=== PATIENT | female | born 1945 | race African-American/Black ===

== ENCOUNTER 2024-02-17 13:12 | Inpatient (IN) | payer MEDICARE, MEDICAID ==
[2024-02-17] VITALS (7 sets, daily range): BP systolic 92–114; BP diastolic 34–54; PULSE 80–122; RESP 18–31; TEMP 100.9; O2SAT 2–100
[~2024-02-17] VITALS: Ht 172.7 cm; Wt 122.6 kg
[~2024-02-17 13:12] MED LIST: ALBU3SOL83 IH; AMLO5TAB GT; ASPI-1822 GT; ATOR20TA40 GT; CARV12.52 GT; HUM SUBQ; LANS30EC GT; LANTUS SUBQ; ONDA-188 GT; TICA90TA GT; [UNRECOGNIZED DRUG - CODE] GT
[2024-02-17 14:08] LABS: HEMATOCRIT 23.5 % (36-48); HEMOGLOBIN 7.6 g/dL (12.0-16.0); MEAN CORPUSCULAR HEMOGLOBIN 27 pg (27-31); MEAN CORPUSCULAR HGB CONC 32 g/dL (33-37); MEAN CORPUSCULAR VOLUME 83.4 fL (80-94); PLATELET COUNT (AUTO) 147 K/uL (140-450); RED BLOOD CELL COUNT(AUTO) 2.82 MIL/uL (4.20-5.40); RED CELL DISTRIBUTION WIDTH 18.2 % (11.6-13.7); WHITE BLOOD COUNT (AUTO) 12.5 K/uL (4.8-10.8)
[2024-02-17 14:24] LABS: APPEARANCE,URINE CLEAR (CLEAR); BILIRUBIN,URINE NEGATIVE (NEGATIVE); BLOOD, URINE 2+ (NEGATIVE); COLOR,URINE YELLOW (YELLOW); LEUKOCYTE ESTERASE ,URINE 2+ (NEGATIVE); NITRITE, URINE NEGATIVE (NEGATIVE); PROTEIN,URINE TRACE (NEGATIVE); UGLUCOSE NEGATIVE (NEGATIVE)
[2024-02-17 14:28] LABS: ANION GAP 11.5 (8-16); CALCIUM 8.4 mg/dL (8.5-10.1); CARBON DIOXIDE 29.8 mmol/L (21-32); CHLORIDE 99 mmol/L (98-107); CREATININE 1.4 mg/dL (0.6-1.3); GLUCOSE 114 mg/dL (74-106); POTASSIUM 4.3 mmol/L (3.5-5.1); SODIUM SERUM 136 mmol/L (136-145); UREA NITROGEN, BLOOD 60 mg/dL (7-18)
[2024-02-17 14:35] LABS: ALANINE AMINOTRANSFERASE 122 U/L (12-78); ALBUMIN 1.3 g/dL (3.4-5.0); ALKALINE PHOSPHATASE 156 U/L (50-136); ASPARTATE AMINOTRANSFERASE 120 U/L (15-37); BILIRUBIN,DIRECT 0.8 mg/dL (0.0-0.3); CREATINE KINASE, TOTAL 58 U/L (26-192); INR 1.12 (0.8-1.2); PROTHROMBIN TIME 11.7 secs (10.8-13.4); TOTAL BILIRUBIN 1.3 mg/dL (0.0-1.0); TOTAL PROTEIN, SERUM 6.5 g/dL (6.4-8.2)
[2024-02-17 14:37] LABS: LACTIC ACID 1.9 mmol/L (0.4-2.0)
[2024-02-17] MEDS: NACL 0.9% 1,000 ML IV ONE ×2 (14:40→15:15)
[2024-02-17] MEDS: ACETAMINOPHEN 650 MG SUPP RC ONE (14:40)
[2024-02-17 14:46] LABS: BACTERIA,URINE 10-30 (MOD) /HPF (None Seen); SQUAMOUS EPITHELIAL CELL,UR 4-10 (MOD) /LPF (0-3 (FEW))
[2024-02-17 14:53] LABS: HYPOCHROMASIA 2+; LYMPHOCYTES % (MANUAL) 4 % (20-46); MONOCYTES % (MANUAL) 2 % (5-12); PLATELET ESTIMATE ADEQUATE; PROMYELOCYTES % 2 % (0-0)
[2024-02-17] MEDS ORDERED: PIPERACILLIN/TAZOBACTAM 2.25 GM VIAL IV ONE (15:11)
[2024-02-17] MEDS: PIPERACILLIN/TAZOBACTAM 2.25 GM in DEXTROSE 5% 50 ML IV ONE (15:20)
[2024-02-17] MEDS: METOPROLOL 5 MG/5 ML VIAL IVP ONE (15:53)
[2024-02-17] MEDS ORDERED: ONDANSETRON 4 MG/2 ML VIAL IM/IVP PRN (16:15)
[2024-02-17] MEDS ORDERED: guaiFENesin DM 200/20 MG-10 ML 10 ML UDC PO PRN (16:15)
[2024-02-17] MEDS ORDERED: HYDROcodone/APAP 7.5/325 MG 1 TAB PO PRN (16:15)
[2024-02-17] MEDS ORDERED: DOCUSATE SODIUM 100 MG GELCAP PO PRN (16:15)
[2024-02-17] MEDS ORDERED: ZOLPIDEM 5 MG TAB PO PRN (16:15)
[2024-02-17] MEDS ORDERED: POTASSIUM CHLORIDE 10 MEQ TABER PO PRN (16:15)
[2024-02-17] MEDS ORDERED: ALBUTEROL SULFATE/IPRATROPIU 3 ML SOL IH PRN (16:20)
[2024-02-17] MEDS ORDERED: DEXTROSE 50% 50 ML SYR IVP PRN (16:30)
[2024-02-17] MEDS: NACL 0.9% 1,000 ML IV SCH (16:48)
[2024-02-17] MEDS: BLOOD GLUCOSE MONITORING 1 DEV DEV FS SCH (16:58)
[2024-02-17] MEDS: ASPIRIN 300 MG SUPP RC ONE ×2 (17:46)
[2024-02-17] MEDS ORDERED: HEPARIN PER PHARMACY MC PRN (17:55)
[2024-02-17] MEDS: NACL 0.9% 500 ML IV SCH (18:07)
[2024-02-17] MEDS ORDERED: VANCOMYCIN 1,000 MG VIAL ONE (18:21)
[2024-02-17] MEDS: VANCOMYCIN 1,000 MG in DEXTROSE 5% 250 ML IV SCH (18:42)
[2024-02-17] MEDS: hePARIN / DEXT 5% PREMIX 250 ML IV SCH (19:21)
[2024-02-17] MEDS: ATORVASTATIN 20 MG TAB GT SCH (21:00)
[2024-02-17] MEDS: carvediloL 12.5 MG TAB GT SCH (21:00)
[2024-02-17 22:54] LABS: LACTIC ACID 4.7 mmol/L (0.4-2.0)
[2024-02-17] MEDS: PIPERACILLIN/TAZOBACTAM 3.375 GM in DEXTROSE 5% 50 ML IV SCH (23:08)
[2024-02-17] MEDS: PIPERACILLIN/TAZOBACTAM 3.375 GM VIAL IV ONE (23:08)
[2024-02-18] VITALS (15 sets, daily range): BP systolic 113–163; BP diastolic 71–101; PULSE 71–111; RESP 18–20; TEMP 95.9–97.9; O2SAT 97–100
[2024-02-18] MEDS: PIPERACILLIN/TAZOBACTAM 3.375 GM VIAL IV ONE (06:22)
[2024-02-18 06:58] LABS: HEMATOCRIT 21.4 % (36-48); LYMPHOCYTES # (AUTO) 1.2 K/uL (2.5-16.5); LYMPHOCYTES % (AUTO) 6.2 % (20.5-51.1); MEAN CORPUSCULAR HEMOGLOBIN 27 pg (27-31); MEAN CORPUSCULAR HGB CONC 32 g/dL (33-37); MEAN CORPUSCULAR VOLUME 83.4 fL (80-94); MONOCYTES # (AUTO) 0.9 K/uL (0.8-1.0); MONOCYTES % (AUTO) 4.3 % (1.7-9.3); NEUTROPHILS # (AUTO) 17.9 K/uL (1.8-7.7); NEUTROPHILS % (AUTO) 89.5 % (42.2-75.2); PLATELET COUNT (AUTO) 149 K/uL (140-450); RED BLOOD CELL COUNT(AUTO) 2.56 MIL/uL (4.20-5.40)
[2024-02-18 07:32] LABS: ALANINE AMINOTRANSFERASE 94 U/L (12-78); ALBUMIN 1.1 g/dL (3.4-5.0); ALKALINE PHOSPHATASE 145 U/L (50-136); ANION GAP 12.6 (8-16); ASPARTATE AMINOTRANSFERASE 83 U/L (15-37); CALCIUM 7.6 mg/dL (8.5-10.1); CARBON DIOXIDE 26.3 mmol/L (21-32); CHLORIDE 101 mmol/L (98-107); CREATININE 1.6 mg/dL (0.6-1.3); GLUCOSE 156 mg/dL (74-106); POTASSIUM 3.9 mmol/L (3.5-5.1); SODIUM SERUM 136 mmol/L (136-145); TOTAL BILIRUBIN 1.6 mg/dL (0.0-1.0); TOTAL PROTEIN, SERUM 5.6 g/dL (6.4-8.2)
[2024-02-18 07:42] LABS: UREA NITROGEN, BLOOD 62 mg/dL (7-18)
[2024-02-18 08:08] LABS: HEMOGLOBIN 6.8 g/dL (12.0-16.0)
[2024-02-18] MEDS: VANCOMYCIN 1,000 MG in DEXTROSE 5% 250 ML IV SCH (08:57)
[2024-02-18] MEDS: PANTOPRAZOLE 40 MG TABEC PO SCH (09:00)
[2024-02-18] MEDS: amLODIPine 5 MG TAB GT SCH (09:00)
[2024-02-18] MEDS: ASPIRIN 81 MG TAB.CHEW GT SCH (09:00)
[2024-02-18] MEDS: VANCOMYCIN PER PHARMACY MC SCH (09:02)
[2024-02-18] MEDS: MEROPENEM 1,000 MG in NACL 0.9% 50 ML IV SCH (11:34)
[2024-02-18] MEDS: INSULIN LISPRO SLIDING SCALE 100 UNITS/ML VIAL SUBQ PRN (11:37)
[2024-02-18] MEDS: ACETAMINOPHEN 325 MG TAB PO SCH (12:00)
[2024-02-18] MEDS: hydrALAZINE 20 MG/ML VIAL IVP PRN (13:07)
[2024-02-18] MEDS: FUROSEMIDE 20 MG TAB PO SCH (16:00)
[2024-02-18] MEDS: DEXT 5% / NACL 0.9% 500 ML IV SCH (19:35)
[2024-02-18] MEDS: MEROPENEM 1,000 MG VIAL IV ONE (21:35)
[2024-02-19] VITALS (17 sets, daily range): BP systolic 92–120; BP diastolic 51–87; PULSE 62–112; RESP 16–43; TEMP 36.2; O2SAT 99–100
[2024-02-19 02:00] LABS: HEMATOCRIT 26.1 % (36-48); HEMOGLOBIN 8.5 g/dL (12.0-16.0)
[2024-02-19 07:46] LABS: BASOPHILS % (AUTO) 0.1 % (0.0-2.0); EOSINOPHILS % (AUTO) 0.1 % (0.0-4.0); HEMOGLOBIN 9.4 g/dL (12.0-16.0); LYMPHOCYTES # (AUTO) 0.9 K/uL (2.5-16.5); LYMPHOCYTES % (AUTO) 5.1 % (20.5-51.1); MEAN CORPUSCULAR HEMOGLOBIN 27 pg (27-31); MEAN CORPUSCULAR HGB CONC 33 g/dL (33-37); MEAN CORPUSCULAR VOLUME 84.4 fL (80-94); MONOCYTES # (AUTO) 0.8 K/uL (0.8-1.0); MONOCYTES % (AUTO) 4.8 % (1.7-9.3); NEUTROPHILS # (AUTO) 15.1 K/uL (1.8-7.7); NEUTROPHILS % (AUTO) 89.9 % (42.2-75.2); PLATELET COUNT (AUTO) 170 K/uL (140-450); RED BLOOD CELL COUNT(AUTO) 3.43 MIL/uL (4.20-5.40); RED CELL DISTRIBUTION WIDTH 17.1 % (11.6-13.7); WHITE BLOOD COUNT (AUTO) 16.8 K/uL (4.8-10.8)
[2024-02-19 07:50] LABS: ALANINE AMINOTRANSFERASE 73 U/L (12-78); ALKALINE PHOSPHATASE 137 U/L (50-136); ANION GAP 14.9 (8-16); ASPARTATE AMINOTRANSFERASE 39 U/L (15-37); CALCIUM 7.9 mg/dL (8.5-10.1); CARBON DIOXIDE 23.4 mmol/L (21-32); CHLORIDE 104 mmol/L (98-107); CREATININE 1.6 mg/dL (0.6-1.3); GLUCOSE 130 mg/dL (74-106); POTASSIUM 3.3 mmol/L (3.5-5.1); SODIUM SERUM 139 mmol/L (136-145); TOTAL BILIRUBIN 1.1 mg/dL (0.0-1.0); TOTAL PROTEIN, SERUM 5.8 g/dL (6.4-8.2); UREA NITROGEN, BLOOD 59 mg/dL (7-18)
[2024-02-19 08:22] LABS: ALBUMIN 1.2 g/dL (3.4-5.0)
[2024-02-19] MEDS: POTASSIUM CHLORIDE 40 MEQ, LIDOCAINE 1% 25 MG in NACL 0.9% 250 ML IV SCH (12:19)
[2024-02-19] MEDS ORDERED: HYDRAGUARD CREAM TP PRN (12:30)
[2024-02-19] MEDS: ALGINATE DRESSING MC SCH (12:33)
[2024-02-19] MEDS: THERAHONEY GEL 42.5 GM TP SCH (12:38)
[2024-02-19] MEDS: HYDRAGUARD CREAM TP SCH (12:38)
[2024-02-19] MEDS ORDERED: FUROSEMIDE 20 MG/2 ML VIAL IVP SCH (14:05)
[2024-02-19] MEDS: FUROSEMIDE 40 MG/4 ML VIAL IVP SCH (14:32)
[2024-02-19] MEDS ORDERED: FUROSEMIDE 40 MG/4 ML VIAL IVP SCH (17:00)
[2024-02-19] MEDS ORDERED: NOREPINEPHRINE 4 MG in DEXTROSE 5% 250 ML IV PRN (19:40)
[2024-02-19] MEDS ORDERED: HYDROmorphone 1 MG/ML AMP IVP PRN (20:45)
[2024-02-19] MEDS ORDERED: ONDANSETRON 4 MG/2 ML VIAL IV PRN (20:45)
[2024-02-19] MEDS: ALBUMIN HUMAN 5 % 250 ML IV SCH (21:47)
[2024-02-20] VITALS (27 sets, daily range): BP systolic 64–149; BP diastolic 36–108; PULSE 83–115; RESP 16–37; TEMP 95–96.3; O2SAT 99–100
[2024-02-20 05:28] LABS: EOSINOPHILS % (AUTO) 0.1 % (0.0-4.0); HEMATOCRIT 26.2 % (36-48); HEMOGLOBIN 8.5 g/dL (12.0-16.0); LYMPHOCYTES # (AUTO) 0.9 K/uL (2.5-16.5); LYMPHOCYTES % (AUTO) 6.7 % (20.5-51.1); MEAN CORPUSCULAR HEMOGLOBIN 28 pg (27-31); MEAN CORPUSCULAR HGB CONC 33 g/dL (33-37); MONOCYTES # (AUTO) 0.6 K/uL (0.8-1.0); MONOCYTES % (AUTO) 4.5 % (1.7-9.3); NEUTROPHILS # (AUTO) 11.5 K/uL (1.8-7.7); NEUTROPHILS % (AUTO) 88.7 % (42.2-75.2); PLATELET COUNT (AUTO) 161 K/uL (140-450); RED BLOOD CELL COUNT(AUTO) 3.08 MIL/uL (4.20-5.40); RED CELL DISTRIBUTION WIDTH 17.3 % (11.6-13.7)
[2024-02-20 06:04] LABS: ALANINE AMINOTRANSFERASE 47 U/L (12-78); ALBUMIN 1.3 g/dL (3.4-5.0); ALKALINE PHOSPHATASE 112 U/L (50-136); ANION GAP 14.2 (8-16); ASPARTATE AMINOTRANSFERASE 27 U/L (15-37); CALCIUM 7.9 mg/dL (8.5-10.1); CARBON DIOXIDE 25.3 mmol/L (21-32); CHLORIDE 105 mmol/L (98-107); CREATININE 1.7 mg/dL (0.6-1.3); GLUCOSE 172 mg/dL (74-106); POTASSIUM 3.5 mmol/L (3.5-5.1); SODIUM SERUM 141 mmol/L (136-145); TOTAL PROTEIN, SERUM 5.3 g/dL (6.4-8.2)
[2024-02-20 06:18] LABS: UREA NITROGEN, BLOOD 62 mg/dL (7-18)
[2024-02-20] MEDS: FUROSEMIDE 40 MG/4 ML VIAL IVP SCH (08:49)
[2024-02-20] MEDS ORDERED: NOREPINEPHRINE 16 MG in DEXTROSE 5% 250 ML IV PRN (10:35)
[2024-02-20] MEDS ORDERED: TPN PER PHARMACY MC PRN (14:35)
[2024-02-20] MEDS: DEXT 5% /NACL 0.9% 1,000 ML IV SCH (18:25)
[2024-02-20] MEDS: NOREPINEPHRINE 8 MG in DEXTROSE 5% 250 ML IV PRN (20:33)
[2024-02-20] MEDS: LINEZOLID 600MG PREMIX 300 ML IV SCH (21:56)
[2024-02-21] VITALS (40 sets, daily range): BP systolic 62–181; BP diastolic 40–121; PULSE 79–105; RESP 8–34; TEMP 96.2–97.4; O2SAT 100
[2024-02-21 06:02] LABS: HEMATOCRIT 31.4 % (36-48); HEMOGLOBIN 10.2 g/dL (12.0-16.0); MEAN CORPUSCULAR HEMOGLOBIN 28 pg (27-31); MEAN CORPUSCULAR HGB CONC 32 g/dL (33-37); MEAN CORPUSCULAR VOLUME 85.4 fL (80-94); PLATELET COUNT (AUTO) 197 K/uL (140-450); RED BLOOD CELL COUNT(AUTO) 3.67 MIL/uL (4.20-5.40); RED CELL DISTRIBUTION WIDTH 17.6 % (11.6-13.7); WHITE BLOOD COUNT (AUTO) 11.3 K/uL (4.8-10.8)
[2024-02-21 07:10] LABS: ALANINE AMINOTRANSFERASE 46 U/L (12-78); ALBUMIN 1.4 g/dL (3.4-5.0); ALKALINE PHOSPHATASE 129 U/L (50-136); ANION GAP 16.8 (8-16); ASPARTATE AMINOTRANSFERASE 25 U/L (15-37); CALCIUM 8.2 mg/dL (8.5-10.1); CARBON DIOXIDE 22.3 mmol/L (21-32); CHLORIDE 104 mmol/L (98-107); CREATININE 1.7 mg/dL (0.6-1.3); GLUCOSE 208 mg/dL (74-106); POTASSIUM 3.1 mmol/L (3.5-5.1); SODIUM SERUM 140 mmol/L (136-145); TOTAL BILIRUBIN 0.9 mg/dL (0.0-1.0); TOTAL PROTEIN, SERUM 6.1 g/dL (6.4-8.2); UREA NITROGEN, BLOOD 59 mg/dL (7-18)
[2024-02-21 07:27] LABS: MAGNESIUM 2.1 mg/dL (1.8-2.4)
[2024-02-21 07:37] LABS: BASOPHILS % (MANUAL) 0 % (0-2); EOSINOPHILS % (MANUAL) 0 % (0-4); LYMPHOCYTES % (MANUAL) 7 % (20-46); MONOCYTES % (MANUAL) 5 % (5-12)
[2024-02-21 07:38] LABS: PLATELET ESTIMATE ADEQUATE
[2024-02-21] MEDS: POTASSIUM CHLORIDE 20% 40 MEQ/15 ML UDC GT SCH (09:19)
[2024-02-21] MEDS: PANTOPRAZOLE 40 MG INJ VIAL IVP SCH (09:35)
[2024-02-21 11:20] LABS: CHOL/HDL RATIO 6.9 (1-4.5)
[2024-02-21] MEDS ORDERED: POTASSIUM CHLORIDE 20% 40 MEQ/15 ML UDC GT PRN (11:25)
[2024-02-21] MEDS: MIDODRINE 5 MG TAB PO SCH (13:35)
[2024-02-21] MEDS: BUPIVACAINE-MPF 0.25% 30 ML VIAL INJ ONE (19:31)
[2024-02-21] MEDS: LIDOCAINE 1% 500 MG/50 ML VIAL ONE (19:31)
[2024-02-21] MEDS: DEXTROSE IV SCH (19:32)
[2024-02-21] MEDS: AMINO ACIDS IV SCH (19:32)
[2024-02-21] MEDS: MULTIVITAMIN IV SCH (19:32)
[2024-02-21] MEDS: [UNRECOGNIZED DRUG - OTHER] IV SCH (19:32)
[2024-02-22] VITALS (23 sets, daily range): BP systolic 91–188; BP diastolic 48–114; PULSE 74–117; RESP 16–28; TEMP 96.4–98.1; O2SAT 98–100
[2024-02-22 05:41] LABS: BASOPHILS % (AUTO) 0.1 % (0.0-2.0); EOSINOPHILS % (AUTO) 0.3 % (0.0-4.0); HEMATOCRIT 31.1 % (36-48); LYMPHOCYTES # (AUTO) 1.6 K/uL (2.5-16.5); LYMPHOCYTES % (AUTO) 12.1 % (20.5-51.1); MEAN CORPUSCULAR HEMOGLOBIN 28 pg (27-31); MEAN CORPUSCULAR HGB CONC 32 g/dL (33-37); MEAN CORPUSCULAR VOLUME 85.7 fL (80-94); MONOCYTES # (AUTO) 0.8 K/uL (0.8-1.0); NEUTROPHILS # (AUTO) 10.5 K/uL (1.8-7.7); NEUTROPHILS % (AUTO) 81.5 % (42.2-75.2); PLATELET COUNT (AUTO) 176 K/uL (140-450); RED BLOOD CELL COUNT(AUTO) 3.63 MIL/uL (4.20-5.40); WHITE BLOOD COUNT (AUTO) 12.9 K/uL (4.8-10.8)
[2024-02-22 05:42] LABS: MAGNESIUM 1.8 mg/dL (1.8-2.4); PHOSPHORUS 4.1 mg/dL (2.5-4.9)
[2024-02-22 05:45] LABS: ALANINE AMINOTRANSFERASE 32 U/L (12-78); ALBUMIN 1.4 g/dL (3.4-5.0); ALKALINE PHOSPHATASE 122 U/L (50-136); ANION GAP 14.7 (8-16); ASPARTATE AMINOTRANSFERASE 20 U/L (15-37); CALCIUM 8.2 mg/dL (8.5-10.1); CHLORIDE 105 mmol/L (98-107); CREATININE 1.7 mg/dL (0.6-1.3); GLUCOSE 259 mg/dL (74-106); POTASSIUM 3.7 mmol/L (3.5-5.1); SODIUM SERUM 140 mmol/L (136-145); TOTAL BILIRUBIN 0.7 mg/dL (0.0-1.0); TOTAL PROTEIN, SERUM 5.8 g/dL (6.4-8.2); UREA NITROGEN, BLOOD 59 mg/dL (7-18)
[2024-02-22] MEDS: PANTOPRAZOLE 40 MG INJ VIAL IVP SCH (09:05)
[2024-02-22] MEDS: ALBUMIN HUMAN 25% 100 ML IV SCH (10:44)
[2024-02-22] MEDS: ACETAMINOPHEN 325 MG TAB PO PRN (13:26)
[2024-02-22] MEDS: BLOOD GLUCOSE MONITORING 1 DEV DEV FS SCH (17:26)
[2024-02-22] MEDS: [UNRECOGNIZED DRUG - OTHER] IV SCH (20:02)
[2024-02-22] MEDS: DEXTROSE IV SCH (20:02)
[2024-02-22] MEDS: MULTIVITAMIN IV SCH (20:02)
[2024-02-22] MEDS: AMINO ACIDS IV SCH (20:02)
[2024-02-22] MEDS: INSULIN LANTUS 100 UNITS/ML 10 ML VIAL SUBQ SCH (20:17)
[2024-02-23] VITALS (17 sets, daily range): BP systolic 92–150; BP diastolic 52–95; PULSE 70–86; RESP 15–25; TEMP 97.2–98.3; O2SAT 100
[2024-02-23] MEDS: ALGINATE DRESSING MC PRN (00:13)
[2024-02-23] MEDS: THERAHONEY GEL 42.5 GM TP PRN (00:13)
[2024-02-23 06:19] LABS: BASOPHILS % (AUTO) 0.1 % (0.0-2.0); EOSINOPHILS # (AUTO) 0.1 K/uL (0-0.4); EOSINOPHILS % (AUTO) 0.7 % (0.0-4.0); HEMATOCRIT 29.6 % (36-48); HEMOGLOBIN 9.6 g/dL (12.0-16.0); LYMPHOCYTES # (AUTO) 1.2 K/uL (2.5-16.5); MEAN CORPUSCULAR HEMOGLOBIN 28 pg (27-31); MEAN CORPUSCULAR HGB CONC 32 g/dL (33-37); MEAN CORPUSCULAR VOLUME 85.8 fL (80-94); MONOCYTES # (AUTO) 0.6 K/uL (0.8-1.0); MONOCYTES % (AUTO) 5.1 % (1.7-9.3); NEUTROPHILS # (AUTO) 10.3 K/uL (1.8-7.7); NEUTROPHILS % (AUTO) 84.1 % (42.2-75.2); PLATELET COUNT (AUTO) 159 K/uL (140-450); RED BLOOD CELL COUNT(AUTO) 3.45 MIL/uL (4.20-5.40); WHITE BLOOD COUNT (AUTO) 12.2 K/uL (4.8-10.8)
[2024-02-23 06:36] LABS: ALANINE AMINOTRANSFERASE 27 U/L (12-78); ALBUMIN 1.5 g/dL (3.4-5.0); ALKALINE PHOSPHATASE 118 U/L (50-136); ASPARTATE AMINOTRANSFERASE 19 U/L (15-37); CALCIUM 8.3 mg/dL (8.5-10.1); CARBON DIOXIDE 24.7 mmol/L (21-32); CHLORIDE 106 mmol/L (98-107); CREATININE 1.6 mg/dL (0.6-1.3); GLUCOSE 208 mg/dL (74-106); POTASSIUM 3.7 mmol/L (3.5-5.1); SODIUM SERUM 141 mmol/L (136-145); TOTAL BILIRUBIN 0.7 mg/dL (0.0-1.0); TOTAL PROTEIN, SERUM 5.6 g/dL (6.4-8.2)
[2024-02-23 06:37] LABS: UREA NITROGEN, BLOOD 62 mg/dL (7-18)
[2024-02-23 06:51] LABS: MAGNESIUM 1.8 mg/dL (1.8-2.4); PHOSPHORUS 3.5 mg/dL (2.5-4.9)
[2024-02-23] MEDS ORDERED: ALTEPLASE 2 MG VIAL MC SCH ×2 (10:00)
[2024-02-23] MEDS: ALTEPLASE 2 MG VIAL MC SCH ×2 (11:30)
[2024-02-24] VITALS (13 sets, daily range): BP systolic 105–136; BP diastolic 55–85; PULSE 62–95; RESP 18–23; TEMP 96.3–98; O2SAT 99–100
[2024-02-24 05:46] LABS: BASOPHILS % (AUTO) 0.3 % (0.0-2.0); EOSINOPHILS # (AUTO) 0.1 K/uL (0-0.4); EOSINOPHILS % (AUTO) 1.1 % (0.0-4.0); HEMATOCRIT 30.9 % (36-48); HEMOGLOBIN 9.9 g/dL (12.0-16.0); LYMPHOCYTES # (AUTO) 1.3 K/uL (2.5-16.5); LYMPHOCYTES % (AUTO) 10.8 % (20.5-51.1); MEAN CORPUSCULAR HEMOGLOBIN 27 pg (27-31); MEAN CORPUSCULAR HGB CONC 32 g/dL (33-37); MEAN CORPUSCULAR VOLUME 85.4 fL (80-94); MONOCYTES # (AUTO) 0.6 K/uL (0.8-1.0); MONOCYTES % (AUTO) 4.9 % (1.7-9.3); NEUTROPHILS % (AUTO) 82.9 % (42.2-75.2); PLATELET COUNT (AUTO) 135 K/uL (140-450); RED BLOOD CELL COUNT(AUTO) 3.62 MIL/uL (4.20-5.40); RED CELL DISTRIBUTION WIDTH 18.1 % (11.6-13.7); WHITE BLOOD COUNT (AUTO) 12.1 K/uL (4.8-10.8)
[2024-02-24 06:08] LABS: PHOSPHORUS 3.7 mg/dL (2.5-4.9)
[2024-02-24 06:10] LABS: ALANINE AMINOTRANSFERASE 19 U/L (12-78); ALBUMIN 1.4 g/dL (3.4-5.0); ALKALINE PHOSPHATASE 126 U/L (50-136); ANION GAP 13.4 (8-16); ASPARTATE AMINOTRANSFERASE 21 U/L (15-37); CALCIUM 8.5 mg/dL (8.5-10.1); CARBON DIOXIDE 23.4 mmol/L (21-32); CHLORIDE 107 mmol/L (98-107); CREATININE 1.6 mg/dL (0.6-1.3); GLUCOSE 195 mg/dL (74-106); POTASSIUM 3.8 mmol/L (3.5-5.1); SODIUM SERUM 140 mmol/L (136-145); TOTAL BILIRUBIN 0.7 mg/dL (0.0-1.0); TOTAL PROTEIN, SERUM 5.5 g/dL (6.4-8.2)
[2024-02-24 06:25] LABS: UREA NITROGEN, BLOOD 61 mg/dL (7-18)
[2024-02-24] MEDS: FUROSEMIDE 40 MG/4 ML VIAL IVP SCH (13:44)
[2024-02-24] MEDS: MULTIVITAMIN-12 10 ML in DEXTROSE 50% 720 ML, AMINO ACIDS 8.5% 570 ML, FAT EMULSION 20%... IV SCH (19:38)
[2024-02-25] VITALS (13 sets, daily range): BP systolic 113–167; BP diastolic 49–83; PULSE 80–116; RESP 20–33; TEMP 96.8–97.4; O2SAT 99–100
[2024-02-25 06:18] LABS: ALANINE AMINOTRANSFERASE 16 U/L (12-78); ALBUMIN 1.3 g/dL (3.4-5.0); ALKALINE PHOSPHATASE 131 U/L (50-136); ANION GAP 13.5 (8-16); ASPARTATE AMINOTRANSFERASE 23 U/L (15-37); CALCIUM 8.5 mg/dL (8.5-10.1); CARBON DIOXIDE 24.5 mmol/L (21-32); CHLORIDE 106 mmol/L (98-107); CREATININE 1.7 mg/dL (0.6-1.3); GLUCOSE 186 mg/dL (74-106); SODIUM SERUM 140 mmol/L (136-145); TOTAL BILIRUBIN 0.7 mg/dL (0.0-1.0); TOTAL PROTEIN, SERUM 5.4 g/dL (6.4-8.2)
[2024-02-25 06:19] LABS: BASOPHILS # (AUTO) 0.1 K/uL (0.00-0.22); BASOPHILS % (AUTO) 0.6 % (0.0-2.0); EOSINOPHILS # (AUTO) 0.1 K/uL (0-0.4); EOSINOPHILS % (AUTO) 1.1 % (0.0-4.0); HEMATOCRIT 31.2 % (36-48); HEMOGLOBIN 10.1 g/dL (12.0-16.0); LYMPHOCYTES # (AUTO) 1.3 K/uL (2.5-16.5); LYMPHOCYTES % (AUTO) 10.5 % (20.5-51.1); MEAN CORPUSCULAR HEMOGLOBIN 28 pg (27-31); MEAN CORPUSCULAR HGB CONC 33 g/dL (33-37); MEAN CORPUSCULAR VOLUME 86.8 fL (80-94); MONOCYTES # (AUTO) 0.1 K/uL (0.8-1.0); MONOCYTES % (AUTO) 0.6 % (1.7-9.3); NEUTROPHILS # (AUTO) 11.1 K/uL (1.8-7.7); NEUTROPHILS % (AUTO) 87.2 % (42.2-75.2); PLATELET COUNT (AUTO) 72 K/uL (140-450); RED CELL DISTRIBUTION WIDTH 18.2 % (11.6-13.7); WHITE BLOOD COUNT (AUTO) 12.7 K/uL (4.8-10.8)
[2024-02-25 06:38] LABS: UREA NITROGEN, BLOOD 61 mg/dL (7-18)
[2024-02-25 06:49] LABS: MAGNESIUM 1.8 mg/dL (1.8-2.4); PHOSPHORUS 3.7 mg/dL (2.5-4.9)
[2024-02-25] MEDS ORDERED: MERO1VIA15 IV (10:53)
[2024-02-25] MEDS ORDERED: LINE600T4 IV (10:53)
[2024-02-26] VITALS (19 sets, daily range): BP systolic 93–140; BP diastolic 24–108; PULSE 91–117; RESP 14–32; TEMP 96.7–97.9; O2SAT 99–100
[2024-02-26 05:33] LABS: BASOPHILS % (AUTO) 0.2 % (0.0-2.0); EOSINOPHILS # (AUTO) 0.1 K/uL (0-0.4); EOSINOPHILS % (AUTO) 0.6 % (0.0-4.0); HEMATOCRIT 29.8 % (36-48); HEMOGLOBIN 9.7 g/dL (12.0-16.0); LYMPHOCYTES % (AUTO) 9.3 % (20.5-51.1); MEAN CORPUSCULAR HEMOGLOBIN 28 pg (27-31); MEAN CORPUSCULAR HGB CONC 33 g/dL (33-37); MEAN CORPUSCULAR VOLUME 85.8 fL (80-94); MONOCYTES # (AUTO) 0.3 K/uL (0.8-1.0); MONOCYTES % (AUTO) 2.9 % (1.7-9.3); NEUTROPHILS # (AUTO) 9.5 K/uL (1.8-7.7); PLATELET COUNT (AUTO) 75 K/uL (140-450); RED BLOOD CELL COUNT(AUTO) 3.47 MIL/uL (4.20-5.40); RED CELL DISTRIBUTION WIDTH 18.2 % (11.6-13.7); WHITE BLOOD COUNT (AUTO) 10.9 K/uL (4.8-10.8)
[2024-02-26 06:04] LABS: ALANINE AMINOTRANSFERASE 13 U/L (12-78); ALBUMIN 1.2 g/dL (3.4-5.0); ALKALINE PHOSPHATASE 135 U/L (50-136); ASPARTATE AMINOTRANSFERASE 21 U/L (15-37); CALCIUM 8.5 mg/dL (8.5-10.1); CARBON DIOXIDE 26.3 mmol/L (21-32); CHLORIDE 105 mmol/L (98-107); CREATININE 1.6 mg/dL (0.6-1.3); GLUCOSE 164 mg/dL (74-106); POTASSIUM 4.3 mmol/L (3.5-5.1); SODIUM SERUM 140 mmol/L (136-145); TOTAL BILIRUBIN 0.8 mg/dL (0.0-1.0); TOTAL PROTEIN, SERUM 5.4 g/dL (6.4-8.2)
[2024-02-26 06:05] LABS: UREA NITROGEN, BLOOD 62 mg/dL (7-18)
[2024-02-26 06:15] LABS: MAGNESIUM 1.9 mg/dL (1.8-2.4); PHOSPHORUS 3.9 mg/dL (2.5-4.9)
[2024-02-26] MEDS: BUPIVACAINE-MPF 0.25% 30 ML VIAL INJ ONE (16:26)
[2024-02-26] MEDS: LIDOCAINE/EPI 1% 1:100000 20 ML VIAL INJ ONE (16:26)
[2024-02-26] MEDS ORDERED: SEVOFLURANE 250 ML BTL INH ONE (17:40)
[2024-02-26] MEDS ORDERED: NOREPINEPHRINE 4 MG in DEXTROSE 5% 250 ML IV PRN (18:15)
[2024-02-26] MEDS: ROCURONIUM 50 MG/5 ML VIAL IV ONE (18:53)
[2024-02-26] MEDS: SUGAMMADEX SODIUM 200 MG/2 ML VIAL IV ONE (19:17)
[2024-02-26] MEDS: MORPHINE SULFATE 4 MG/ML SYR IV PRN (22:46)
[2024-02-27] VITALS (26 sets, daily range): BP systolic 83–128; BP diastolic 52–96; PULSE 96–125; RESP 17–28; TEMP 96.2–98.1; O2SAT 99–100
[2024-02-27 05:33] LABS: BASOPHILS % (AUTO) 0.1 % (0.0-2.0); EOSINOPHILS % (AUTO) 0.4 % (0.0-4.0); HEMATOCRIT 29.8 % (36-48); HEMOGLOBIN 9.6 g/dL (12.0-16.0); LYMPHOCYTES % (AUTO) 9.9 % (20.5-51.1); MEAN CORPUSCULAR HEMOGLOBIN 28 pg (27-31); MEAN CORPUSCULAR HGB CONC 32 g/dL (33-37); MEAN CORPUSCULAR VOLUME 85.6 fL (80-94); MONOCYTES # (AUTO) 0.3 K/uL (0.8-1.0); MONOCYTES % (AUTO) 2.9 % (1.7-9.3); NEUTROPHILS # (AUTO) 8.9 K/uL (1.8-7.7); NEUTROPHILS % (AUTO) 86.7 % (42.2-75.2); PLATELET COUNT (AUTO) 54 K/uL (140-450); RED BLOOD CELL COUNT(AUTO) 3.48 MIL/uL (4.20-5.40); RED CELL DISTRIBUTION WIDTH 18.5 % (11.6-13.7); WHITE BLOOD COUNT (AUTO) 10.2 K/uL (4.8-10.8)
[2024-02-27 05:42] LABS: ALANINE AMINOTRANSFERASE 15 U/L (12-78); ALBUMIN 1.2 g/dL (3.4-5.0); ALKALINE PHOSPHATASE 164 U/L (50-136); ANION GAP 13.3 (8-16); ASPARTATE AMINOTRANSFERASE 35 U/L (15-37); CALCIUM 8.5 mg/dL (8.5-10.1); CARBON DIOXIDE 26.3 mmol/L (21-32); CHLORIDE 104 mmol/L (98-107); CREATININE 1.6 mg/dL (0.6-1.3); GLUCOSE 77 mg/dL (74-106); POTASSIUM 4.6 mmol/L (3.5-5.1); SODIUM SERUM 139 mmol/L (136-145); TOTAL BILIRUBIN 0.9 mg/dL (0.0-1.0); TOTAL PROTEIN, SERUM 5.4 g/dL (6.4-8.2)
[2024-02-27 05:55] LABS: UREA NITROGEN, BLOOD 63 mg/dL (7-18)
[2024-02-27] MEDS: MEROPENEM 1,000 MG in NACL 0.9% 50 ML IV SCH (11:04)
[2024-02-27] MEDS: FUROSEMIDE 20 MG/2 ML VIAL IVP SCH (14:03)
[2024-02-28] VITALS (15 sets, daily range): BP systolic 133–145; BP diastolic 85–97; PULSE 68–115; RESP 16–23; TEMP 96–97.4; O2SAT 10–100
[2024-02-28 06:13] LABS: ALANINE AMINOTRANSFERASE 208 U/L (12-78); ALBUMIN 1.3 g/dL (3.4-5.0); ALKALINE PHOSPHATASE 505 U/L (50-136); ANION GAP 15.3 (8-16); ASPARTATE AMINOTRANSFERASE 657 U/L (15-37); CALCIUM 8.4 mg/dL (8.5-10.1); CARBON DIOXIDE 23.3 mmol/L (21-32); CHLORIDE 103 mmol/L (98-107); CREATININE 1.8 mg/dL (0.6-1.3); GLUCOSE 82 mg/dL (74-106); POTASSIUM 4.6 mmol/L (3.5-5.1); SODIUM SERUM 137 mmol/L (136-145); TOTAL BILIRUBIN 0.7 mg/dL (0.0-1.0); TOTAL PROTEIN, SERUM 5.6 g/dL (6.4-8.2)
[2024-02-28 06:21] LABS: UREA NITROGEN, BLOOD 70 mg/dL (7-18)
[2024-02-28 07:20] LABS: BASOPHILS % (AUTO) 0.2 % (0.0-2.0); EOSINOPHILS # (AUTO) 0.1 K/uL (0-0.4); EOSINOPHILS % (AUTO) 0.7 % (0.0-4.0); HEMATOCRIT 29.9 % (36-48); HEMOGLOBIN 9.7 g/dL (12.0-16.0); LYMPHOCYTES # (AUTO) 1.6 K/uL (2.5-16.5); LYMPHOCYTES % (AUTO) 17.6 % (20.5-51.1); MEAN CORPUSCULAR HEMOGLOBIN 28 pg (27-31); MEAN CORPUSCULAR HGB CONC 33 g/dL (33-37); MEAN CORPUSCULAR VOLUME 85.9 fL (80-94); MONOCYTES # (AUTO) 0.4 K/uL (0.8-1.0); MONOCYTES % (AUTO) 4.1 % (1.7-9.3); NEUTROPHILS # (AUTO) 7.1 K/uL (1.8-7.7); NEUTROPHILS % (AUTO) 77.4 % (42.2-75.2); PLATELET COUNT (AUTO) 63 K/uL (140-450); RED BLOOD CELL COUNT(AUTO) 3.48 MIL/uL (4.20-5.40); RED CELL DISTRIBUTION WIDTH 18.4 % (11.6-13.7); WHITE BLOOD COUNT (AUTO) 9.1 K/uL (4.8-10.8)
== END 2024-02-28 18:15 | DRG 853 ==
LOC: MED 13:12 → MMU 16:12 → MTU 19:56 → MIC 02-19 20:10 → MMU 02-23 16:39 → MIC 02-26 18:50 → MMU 02-27 12:15
PROVIDERS: ADMIT Student in an Organized Health Care Education/Training Program; ATTEND Student in an Organized Health Care Education/Training Program
PROC: 5A1955Z Respiratory Ventilation, Greater than 96 Consecutive Hours (ICD-10-PCS; principal; 2024-02-17)
PROC: 30233N1 Transfusion of Nonautologous Red Blood Cells into Peripheral Vein, Percutaneous Approach (ICD-10-PCS; 2024-02-18)
PROC: 0W9F0ZZ Drainage of Abdominal Wall, Open Approach (ICD-10-PCS; 2024-02-19)
PROC: 0DH63UZ Insertion of Feeding Device into Stomach, Percutaneous Approach (ICD-10-PCS; 2024-02-26)
DX: A41.9 Sepsis, unspecified organism (principal); E43 Unspecified severe protein-calorie malnutrition; G93.41 Metabolic encephalopathy; I21.A1 Myocardial infarction type 2; N17.0 Acute kidney failure with tubular necrosis; J96.21 Acute and chronic respiratory failure with hypoxia; R53.2 Functional quadriplegia; R65.21 Severe sepsis with septic shock; J18.9 Pneumonia, unspecified organism; K94.23 Gastrostomy malfunction; N39.0 Urinary tract infection, site not specified; Z68.41 Body mass index [BMI] 40.0-44.9, adult; T81.41XA Infection following a procedure, superficial incisional surgical site, initial encounter; Z16.21 Resistance to vancomycin; L02.211 Cutaneous abscess of abdominal wall; L89.159 Pressure ulcer of sacral region, unspecified stage; K21.9 Gastro-esophageal reflux disease without esophagitis; D64.9 Anemia, unspecified; E78.5 Hyperlipidemia, unspecified; D69.6 Thrombocytopenia, unspecified; E11.22 Type 2 diabetes mellitus with diabetic chronic kidney disease; N18.9 Chronic kidney disease, unspecified; I48.91 Unspecified atrial fibrillation; I12.9 Hypertensive chronic kidney disease with stage 1 through stage 4 chronic kidney disease, or unspecified chronic kidney disease; Y83.8 Other surgical procedures as the cause of abnormal reaction of the patient, or of later complication, without mention of misadventure at the time of the procedure; Z79.82 Long term (current) use of aspirin; Z79.899 Other long term (current) drug therapy; Z86.73 Personal history of transient ischemic attack (TIA), and cerebral infarction without residual deficits; E11.51 Type 2 diabetes mellitus with diabetic peripheral angiopathy without gangrene
CPT/HCPCS: 36415; 36430; 71045; 76856; 80048; 80053; 80076; 80202; 81001; 82550; 82948; 83605; 83735; 83880; 84100; 84478; 84484; 85018; 85025; 85610; 85730; 86886; 86900; 86901; 86920; 87040; 87070; 87075; 87081; 87086; 87186; 87205; 89220; 93005; 94003; 96361; 96365; 96375; 99291; A9153; J0360; J1644; J1815; J1940; J2001; J2020; J2185; J2270; J2470; J2543; J2997; J3370; J3480; J3490; J7030; J7060; P9016; P9041; P9046; Q0092